=== PATIENT | male | born 1985 | race Hispanic/Latino ===

== ENCOUNTER 2019-03-14 17:50 | Emergency (ER) | payer BC ==
[~2019-03-14 17:50] MED LIST: Iopamidol 370 76% 100 ML VIAL ONE
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
[2019-03-14] MEDS ORDERED: Morphine 4 MG/ML VIAL ONE (18:37)
[2019-03-14] MEDS ORDERED: Ondansetron PF 4 MG/2 ML Vial ONE (18:37)
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
[2019-03-14] MEDS ORDERED: Ketorolac Tromethamine 30 MG/ML VIAL ONE (19:11)
== END 2019-03-14 21:35 | disposition home or self-care (01) ==
LOC: MADERS 17:50
DX: S16.1XXA Strain of muscle, fascia and tendon at neck level, initial encounter (principal); R07.89 Other chest pain; F90.9 Attention-deficit hyperactivity disorder, unspecified type; Z79.899 Other long term (current) drug therapy; V49.9XXA Car occupant (driver) (passenger) injured in unspecified traffic accident, initial encounter
CPT/HCPCS: 70450; 71260; 72125; 74177; 93005; 96374; 96375; G0390; J1885; J2270; J2405; Q9967